=== PATIENT | male | born 1990 | race Caucasian/White ===

== ENCOUNTER 2019-04-20 18:25 | Emergency (ER) | payer BC ==
[2019-04-20 18:28] VITALS: BP 128/104
--- NOTE | 2019-04-20 18:35 | ER Report ---
History and Physical Time Seen By MD: 18:33 Hx. of Stated Complaint: left pinky lac from butter knife HPI/ROS CHIEF COMPLAINT: Laceration of left fifth finger HISTORY OF PRESENT ILLNESS: 28-year-old male patient sent to emergency room with complaint of laceration to the left fifth finger. Patient states that he was trying to split some [place] sausages apart, using a butter knife. He states the knife slipped through and cut into his left fifth finger. He denies any numbness tingling to the fifth finger. He did apply pressure and bleeding seems to be better controlled, although he still has some bleeding. Patient states he is not taking any medication for this. Allergies: Coded Allergies: latex (Verified Allergy, Intermediate, 04/20/19) Home Meds Active Scripts Cephalexin 500 Mg Tab (KEFLEX 500 MG TAB) 500 Mg Tablet, 500 MG PO Q6H, #20 TAB Prov:SOPHIA DONALDSON TAKER OFF 04/20/19 Past Medical/Surgical History Patient has no pertinent medical or surgical history. Reviewed Nurses Notes: Yes Constitutional Vital Sign - Last 24 Hours 04/20/19 18:28 Temp 98.2 Pulse 45 Resp 20 B/P (MAP) 128/104 Pulse Ox 93 O2 Delivery Room Air Physical Exam General appearance: Alert no distress. Respiratory: Chest is non tender, lungs are clear to auscultation. Cardiac: Regular rate and rhythm. Skin: Patient has good strength with flexion extension of the finger. Laceration is approximately 1.5 cm does go into the subcutaneous tissue. There is no tendon or ligament injury noted. DIFFERENTIAL DIAGNOSIS: After history and physical exam differential diagnosis was considered for laceration. Medical Decision Making ED Course/Re-evaluation ED Course Patient was admitted to exam room, history and physical were obtained. Differential diagnoses were considered. On examination lungs are clear, heart is regular. Patient does have a laceration to the left fifth finger. Does measure approximately 1.5 cm in length. The finger was anesthetized, cleaned and repaired described below. Patient tolerated procedure well. We will go ahead and discharge him home at this time. He is follow-up with his primary care provider in 7-10 days to have sutures removed. He is to monitor for signs of infection. He states Tylenol ibuprofen as if pain. Patient and his verbalized under standing and agreement with plan. Procedure: Laceration repair. Verbal consent was obtained from the patient. The 1.5 cm laceration on the left finger was anesthetized in the usual fashion. The wound was scrubbed, draped and explored to its base with a gloved finger. There were no deep structures involved. No tendon injury was identified. The wound was repaired with 5 simple interrupted sutures using 5-0 Prolene material. The wound repair was simple. The procedure was performed by myself. Decision to Disposition Date: Apr 20, 2019 Decision to Disposition Time: 19:07 Depart Departure Latest Vital Signs Vital Signs Date Time Temp Pulse Resp B/P (MAP) Pulse Ox O2 Delivery O2 Flow Rate FiO2 04/20/19 18:28 98.2 45 20 128/104 93 Room Air Impression: Primary Impression: Finger laceration Condition: Improved Disposition: HOME OR SELF-CARE New Scripts Cephalexin 500 Mg Tab (KEFLEX 500 MG TAB) 500 Mg Tablet 500 MG PO Q6H, #20 TAB Prov: SOPHIA DONALDSON 04/20/19 Patient Instructions: Finger Laceration (ED) Additional Instructions: Keep wound dry for 48 hours. Follow up with your primary care provider in the next 7-10 days to have sutures removed. Monitor for signs of infection; redness, swelling, heat, discharge, increasing pain or red streaking. Take Tylenol or Ibuprofen as needed for pain. Return to the ER with any concerns. You may change dressing as needed. Problem Qualifiers Primary Impression: Finger laceration Encounter type: initial encounter Finger: little finger Damage to nail status: without damage Foreign body presence: without foreign body Laterality: left Qualified Codes: S61.217A - Laceration without foreign body of left little finger without damage to nail, initial encounter SOPHIA DONALDSON Apr 20, 2019 18:35
[2019-04-20] MEDS: DIPHTH/TETANUS/ACEL. PERTUSSIS IM ONLY ONE ×2 (18:45→19:17)
[2019-04-20] MEDS ORDERED: CEPH500T7 PO (19:12)
== END 2019-04-20 19:16 | disposition home or self-care (01) ==
LOC: ER 18:49
DX: S61.217A Laceration without foreign body of left little finger without damage to nail, initial encounter (principal); W26.0XXA Contact with knife, initial encounter
CPT/HCPCS: 90471; 90715; 99283